=== PATIENT | female | born 1985 | race Caucasian/White ===

== ENCOUNTER 2016-11-30 14:59 | Emergency (ER) | payer MEDICARE, OTHER ==
[~2016-11-30] VITALS: Ht 154.9 cm; Wt 54.4 kg
[2016-11-30 16:20] VITALS: BP 136/88
== END 2016-11-30 16:50 | disposition home or self-care (01) ==
LOC: ER 15:02 → EDBD 15:02 → ER 16:50
DX: H10.33 Unspecified acute conjunctivitis, bilateral (principal)